=== PATIENT | female | born 1975 | race Caucasian/White ===

== ENCOUNTER → 2016-11-19 | Outpatient (CLI) | payer BC ==
[2016-11-19 11:02] LABS: Follicle Stimulating Hormone 4.7 mIU/mL
== END | disposition home or self-care (01) ==
LOC: LABWHC1 08:39
PROVIDERS: ATTEND Obstetrics & Gynecology
DX: F41.8 Other specified anxiety disorders (principal); R61 Generalized hyperhidrosis; R63.3 Feeding difficulties
CPT/HCPCS: 36415; 82670; 83001; 84403

== ENCOUNTER → 2019-07-11 | Outpatient (CLI) | payer BC ==
--- NOTE | 2019-07-17 07:12 | MM ---
Reason for exam: screening (asymptomatic). Last mammogram was performed 1 year and 9 months ago. History: Patient is nulliparous. Family history of breast cancer in paternal grandmother at age 80. Took hormonal contraceptives for 10 years. Taking other hormone for 2 years. Physical Findings: A clinical breast exam by your physician is recommended on an annual basis and results should be correlated with mammographic findings. MG 3D Screening Mammo W/Cad Bilateral CC and MLO view(s) were taken. Prior study comparison: September 27, 2017, bilateral MG 3d screening mammo w/cad. May 19, 2016, bilateral MG 3d screening mammo w/cad. The breast tissue is heterogeneously dense. This may lower the sensitivity of mammography. There are benign appaearing round oval circumscribed masses waxing and waning over time, most mammographically compatible with cysts. Benign appearing bilateral calcifications. No suspicious abnormality. No significant changes when compared with prior studies. ASSESSMENT: Benign, BI-RAD 2 RECOMMENDATION: Routine screening mammogram of both breasts in 1 year.
== END | disposition home or self-care (01) ==
LOC: RADMAMWWP 15:18
PROVIDERS: ATTEND Obstetrics & Gynecology
DX: Z12.31 Encounter for screening mammogram for malignant neoplasm of breast (principal); Z80.3 Family history of malignant neoplasm of breast
CPT/HCPCS: 77063; 77067

== ENCOUNTER 2019-12-18 04:30 | Emergency (ER) | payer BC ==
[2019-12-18 04:38] VITALS: RESP 18; TEMP 97.5
--- NOTE | 2019-12-18 04:48 | ED ---
Eye Problem HPI - General Chief complaint: Eye Problems Stated complaint: eye problems Time Seen by Provider: 12/18/19 04:43 Source: patient Mode of arrival: ambulatory Limitations: no limitations - History of Present Illness Initial comments: Josefa is a 44-year-old female who usually wears contacts, she presents to the emergency department today for evaluation of right thigh pain. Patient reports that last week she noticed some redness of her right eye so she decided take her contacts out and were glasses for a few days. Patient states that her eye improved she then resumed wearing her contacts and wore them Tuesday through Tuesday, Tuesday she woke up with a very irritated red right thigh. Patient reports she got tobramycin drops and steroid drops from her friend and begin using those. She reports the discomfort nearly resolved on Tuesday but throughout the day on Tuesday progressively worsened. Patient was unable sleep through the night tonight due to the discomfort in her right eye which prompted her to the ER for evaluation. Patient reports she hasn't worn her contacts since Tuesday. Patient has no other history of any eye problems she's never had pinkeye. He does not have styes. She's no history of glaucoma. She is nondiabetic. - Related Data Allergies Allergy/AdvReac Type Severity Reaction Status Date / Time diphenhydramine AdvReac Unknown Verified 12/18/19 04:38 [From Arianna] Review of Systems ROS Statement: Those systems with pertinent positive or pertinent negative responses have been documented in the HPI. ROS Other: All systems not noted in ROS Statement are negative. Past Medical History Past Medical History: No Reported History History of Any Multi-Drug Resistant Organisms: None Reported Past Surgical History: No Surgical Hx Reported Past Psychological History: No Psychological Hx Reported Smoking Status: Former smoker Past Alcohol Use History: Occasional General Exam - General Exam Comments Initial Comments: Physical Exam GENERAL: Patient is well-developed and well-nourished. Patient is nontoxic and well-hydrated Appears distressed due to pain in the right eye HENT: Normocephalic, Atraumatic. EYES: PERRL, EOMI Right eye has significant conjunctival injection, minimal discharge Right eye pressures measured by [facility], 17, 18, 19 Left eye pressures measured by [facility], 18, 20 PULMONARY: Unlabored respirations. CARDIOVASCULAR: RRR Warm and well perfused extremities ABDOMEN: Non-distended SKIN: No rashes or bruising : Deferred NEUROLOGIC: Alert and oriented Normal speech Normal gait MUSCULOSKELETAL: Moving all extremities with no apparent injury PSYCHIATRIC: No SI/HI Limitations: no limitations Course Vital Signs 12/18/19 04:33 Temperature 97.5 F L Pulse Rate 60 Respiratory 18 Rate Blood Pressure 128/84 O2 Sat by Pulse 98 Oximetry Medical Decision Making - Medical Decision Making The patient was seen and evaluated, history is obtained from the patient 44-year-old female who wears contacts had some redness in her eye after wearing contacts places contacts and solution for 4 days or glasses at which time her eye improved however upon wearing his contacts again for 4 days develop redness and irritation of the right eye the patient has been taking a friend's tobramycin drops and using topical steroids which improved his symptoms of redness and irritation for a short period of time however she now feels a foreign body sensation eyes quite uncomfortable Patient is treated with proparacaine reported near resolution of the discomfort in her eyes The eye was evaluated there is no evidence of corneal abrasion eyelid was everted and no foreign body was identified Pressures below normal after being measured multiple times At this time I suspect the patient has some degree of conjunctivitis we will treat with Cipro given that the patient is usually a contact wear Patient will be referred back ophthalmology today for further evaluation Disposition Clinical Impression: Bacterial conjunctivitis Disposition: HOME SELF-CARE Condition: Stable Additional Instructions: Contact Dr. Carrera today for appointment Apply drops to eye 3x daily for 1 week Return to the ER for any worsening pain, redness, drainage or new or concerning symptoms Is patient prescribed a controlled substance at d/c from ED?: No Referrals: Shalom Chairez MD [Primary Care Provider] - 1-2 days Lorri Carrera MD [STAFF PHYSICIAN] - 1-2 days
[2019-12-18] MEDS ORDERED: PROPARACAINE 0.5% OPHTH DROPS 15 ML BTL LEFT EYE STA (04:52)
[2019-12-18] MEDS ORDERED: FLUORESCEIN STRIPS 1 MG STRIP LEFT EYE ONE (04:52)
[2019-12-18] MEDS ORDERED: CIPROFLOXACIN 0.3% OPHTH SOLN 5 ML BTL RIGHT EYE ONE (05:08)
[2019-12-18] MEDS: CIPROFLOXACIN 0.3% OPHTH SOLN 5 ML BTL RIGHT EYE STA ×2 (05:10→05:20)
[2019-12-18 05:34] VITALS: BP 125/63; PULSE 62
== END 2019-12-18 05:42 | disposition home or self-care (01) ==
LOC: EC 04:30
DX: H10.9 Unspecified conjunctivitis (principal); Z88.8 Allergy status to other drugs, medicaments and biological substances; Z87.891 Personal history of nicotine dependence
CPT/HCPCS: 99283

== ENCOUNTER → 2020-12-23 | Outpatient (CLI) | payer BC ==
--- NOTE | 2020-12-23 11:54 | MM ---
Reason for exam: screening (asymptomatic). Last mammogram was performed 1 year and 5 months ago. History: Patient is nulliparous. Family history of breast cancer in paternal grandmother at age 80. Took hormonal contraceptives for 10 years. Taking estrogen beginning at age 39. Taking progesterone beginning at age 39. Taking other hormone for 2 years. Physical Findings: A clinical breast exam by your physician is recommended on an annual basis and results should be correlated with mammographic findings. MG 3D Screening Mammo W/Cad Bilateral CC and MLO view(s) were taken. Prior study comparison: July 11, 2019, bilateral MG 3d screening mammo w/cad. September 27, 2017, bilateral MG 3d screening mammo w/cad. The breast tissue is heterogeneously dense. This may lower the sensitivity of mammography. There are benign appearing round calcifications bilaterally. There is no discrete abnormality. ASSESSMENT: Benign, BI-RAD 2 RECOMMENDATION: Routine screening mammogram of both breasts in 1 year.
== END ==
LOC: RADMAMWWP 08:29
PROVIDERS: ATTEND Obstetrics & Gynecology
DX: Z12.31 Encounter for screening mammogram for malignant neoplasm of breast (principal)
CPT/HCPCS: 77063; 77067

== ENCOUNTER → 2022-04-06 | Outpatient (CLI) | payer BC ==
--- NOTE | 2022-04-07 08:42 | MM ---
Reason for Exam: Screening (asymptomatic). Last mammogram was performed 1 year(s) and 3 month(s) ago. Patient History: Menarche at age 13. Patient has no children. Postmenopausal. Currently using Estrogen, starting at age 39. Currently using Progesterone, starting at age 39. Patient used Hormonal Contraceptives for 10 years. Paternal grandmother had breast cancer, age 80. Risk Values: Jade 5 year model risk: 0.9%. NCI Lifetime model risk: 9.3%. Prior Study Comparison: 09/27/2017 Bilateral Screening Mammogram, [facility]. 07/11/2019 Bilateral Screening Mammogram, [facility]. 12/23/2020 Bilateral Screening Mammogram, [facility]. Tissue Density: The breast tissue is heterogeneously dense. This may lower the sensitivity of mammography. Findings: Analyzed By CAD. No suspicious groups of microcalcifications, spiculated or lobular masses, architectural distortion or other secondary signs of malignancy are mammographically apparent. Overall Assessment: Benign, BI-RAD 2 Management: Screening Mammogram of both breasts in 1 year. A negative mammogram report should not preclude additional follow up of suspicious palpable abnormalities. Patient should continue monthly self breast exam. A clinical breast exam by your physician is recommended on an annual basis and results should be correlated with mammographic findings. Electronically signed and approved by: Chance Aguiar D.O. Radiologis
== END | disposition home or self-care (01) ==
LOC: RADMAMWWP 14:49
PROVIDERS: ATTEND Obstetrics & Gynecology
DX: Z12.31 Encounter for screening mammogram for malignant neoplasm of breast (principal); Z78.0 Asymptomatic menopausal state; Z80.3 Family history of malignant neoplasm of breast
CPT/HCPCS: 77063; 77067

== ENCOUNTER → 2022-06-15 | Outpatient (CLI) | payer BC ==
[2022-06-15 15:19] LABS: Estradiol 64.9 pg/mL; Follicle Stimulating Hormone 45.4 mIU/mL
== END | disposition home or self-care (01) ==
LOC: LABWHC1 08:34
PROVIDERS: ATTEND Obstetrics & Gynecology
DX: N95.1 Menopausal and female climacteric states (principal); R37 Sexual dysfunction, unspecified; R53.83 Other fatigue
CPT/HCPCS: 36415; 82670; 83001; 84144; 84403; 86704

== ENCOUNTER → 2023-10-20 | Outpatient (CLI) | payer BC ==
--- NOTE | 2023-10-21 19:41 | MM ---
Reason for Exam: Screening (asymptomatic). Last mammogram was performed 1 year(s) and 7 month(s) ago. Patient History: Menarche at age 13. Patient has no children. Postmenopausal. Currently using Estrogen, starting at age 39. Currently using Progesterone, starting at age 39. Patient used Hormonal Contraceptives for 10 years. Paternal grandmother had breast cancer, age 80. Risk Values: Jade 5 year model risk: 0.9%. NCI Lifetime model risk: 9.2%. Prior Study Comparison: 07/11/2019 Bilateral Screening Mammogram, [facility]. 12/23/2020 Bilateral Screening Mammogram, [facility]. 04/06/2022 Bilateral MG 3D screening mammo w/cad, [facility]. Tissue Density: The breast tissue is heterogeneously dense. This may lower the sensitivity of mammography. Findings: Analyzed By CAD. Pattern appears symmetrical and stable. No significant interval changes are evident. Couple of benign round calcifications are within the left breast. A benign round calcifications within the right breast. Rounded density remains in the upper right mediolateral oblique view. No suspicious groups of microcalcifications, spiculated or lobular masses, architectural distortion or other secondary signs of malignancy are mammographically apparent. Overall Assessment: Benign, BI-RAD 2 Management: Screening Mammogram of both breasts in 1 year. A negative mammogram report should not preclude additional follow up of suspicious palpable abnormalities. Patient should continue monthly self breast exam. A clinical breast exam by your physician is recommended on an annual basis and results should be correlated with mammographic findings. Electronically signed and approved by: Chance Aguiar D.O. Radiologis
== END | disposition home or self-care (01) ==
LOC: RADMAMWWP 14:36
PROVIDERS: ATTEND Obstetrics & Gynecology
DX: Z12.31 Encounter for screening mammogram for malignant neoplasm of breast (principal); Z80.3 Family history of malignant neoplasm of breast; Z78.0 Asymptomatic menopausal state
CPT/HCPCS: 77063; 77067